=== PATIENT | male | born 1970 | race Caucasian/White ===

== ENCOUNTER → 2017-02-25 | Outpatient (CLI) | payer OTHER ==
[~2017-02-25] MED LIST: AUGMENTIN 875 M1 TAB PO; FLEXERIL10 MG PO; IBUPROFEN 30 M800 MG PO; MOTRIN800 MG PO; SINGULAIR10 MG PO; ULTRAM50 MG PO
== END | disposition home or self-care (01) ==
LOC: CT 02:08
DX: J32.9 Chronic sinusitis, unspecified (principal); R53.83 Other fatigue

== ENCOUNTER → 2019-01-25 | Day surgery (SDC) | payer OTHER ==
[~2019-01-25] VITALS: Ht 175.2 cm; Wt 117.9 kg
[~2019-01-25] MED LIST changes: +OMEPRAZOLE20 M2 PO
--- NOTE | ~2019-01-25 | POSTOPNOTE ---
[place], [place] POSTOPERATIVE PROGRESS NOTE NAME: NAWAF SALDANA UNIT #: [id number] ROOM: DOCTOR: NOEL MARTINEZ MD BIRTHDATE: [birth year] DATE: 01/25/19 GI NOTE PREOPERATIVE DIAGNOSIS: CHANGE IN BOWEL HABITS, BLOOD IN STOOL, EPIGASTRIC DISTRESS, NONSPECIFIC ABDOMINAL PAIN POSTOP UPPER GI PROC/FINDINGS: UPPER GI PROCEDURE/SURGERY: EGD WITH BIOPSY UPPER GI FINDINGS: GASTRITIS, DISTAL ESOPHAGEAL NODULE, POSTOP LOWER GI PROC/FINDINGS: LOWER GI PROCEDURE/SURGERY: COLONOSCOPY WITH SNARE POLYPECTOMY LOWER GI FINDINGS: DIVERTICULOSIS MODERATE TO SEVERE AT SIGMOID COLON, STATUS POST SESSILE POLYP SIGMOID COLON NOEL MARTINEZ MD CM:POSTOPN [id number] NOEL MARTINEZ MD 02/10/19 0857 SARA [email or web address]
--- NOTE | ~2019-01-25 | O ---
[place], [place] OPERATIVE NOTE NAME: NAWAF SALDANA UNIT #: [id number] ROOM: DOCTOR: JUAN EVANGELISTA,[facility] BIRTHDATE: [birth year] DOS: 01/25/2019 INDICATIONS: This is a 48-year-old patient who has presented with chief complaint of change in bowel habits, blood in stool, epigastric distress, and nonspecific abdominal pain. ALLERGIES: LATEX AND AMBIEN. FAMILY HISTORY: Noncontributory. PAST SURGICAL HISTORY: Minor wrist repair. PAST MEDICAL HISTORY: Abdominal cramp, 2+ edema. SOCIAL HISTORY: Nonsmoker, nonalcohol consumer, non-soda user. PROCEDURE: Today's procedure part of investigation is panendoscopy and colonoscopy. PREMEDICATION: Propofol. SCOPE: Olympus forward-viewing gastroscope Q10 video. REPORT: After putting the patient in left lateral position and application of lubricant to the scope, the scope was introduced. Thereafter, under direct visualization, advanced through the length of esophagus without difficulty. Distal esophageal nodule at the esophagogastric junction multiple times biopsied ruling out dysplastic cells. Gastric pouch was entered. Gastritis seen. Duodenal bulb, second and third part within normal limit. Antral biopsy obtained. The patient was gradually extubated and tolerated the procedure well. IMPRESSION: Gastritis, distal esophageal nodule, status post biopsy. PLAN AND DISCUSSION: Omeprazole 20 mg 1 every day will be started. Furthermore, we are going to proceed with colonoscopic examination for abdominal pain, change in bowel habit. NDICATIONS: This is a 48-year-old patient who has presented with chief complaint of abdominal pain, undergoing investigation. PROCEDURE: Today's procedure part of investigation is colonoscopy plus snare polypectomy. PREMEDICATION: Propofol. SCOPE: Olympus forward-viewing colonoscope 10L video. DESCRIPTION OF PROCEDURE: After putting the patient in left lateral position and application of lubricant to the scope, the scope was introduced. Thereafter, under direct visualization, advanced through the length of colon [place], [place] OPERATIVE NOTE NAME: NAWAF SALDANA UNIT #: [id number] ROOM: DOCTOR: JUAN EVANGELISTA,[facility] BIRTHDATE: [birth year] without difficulty. Sessile polypoid lesion in sigmoid colon with snare was polypectomized. Sample recovered. Oscelqpw-[id number] diverticulosis, sigmoid colon was noticed. Base of the cecum explored, appendiceal orifice identified and ileocecal valve was defined. Scope was gradually withdrawn from ascending, transverse, descending colon under circumferential fashion. Tissue, carefully examined. The patient extubated, tolerated the procedure well. IMPRESSION: Diverticulosis, [id number] at sigmoid colon, status post sessile polyp, sigmoid colon, status post snare polypectomy. PLAN: High fiber diet. ACTIVITY: Ad siria. FOLLOWUP: As outpatient. Thank you very much indeed for your kind referral. NOEL MARTINEZ MD CM:OPRECORD:OPERATIVE NOTE [id number] NOEL MARTINEZ MD 02/01/19 1039 interface
[2019-01-25 06:43] VITALS: BP 129/67
[2019-01-25 08:17] VITALS: BP 99/57
[2019-01-25 08:32] VITALS: BP 103/66
[2019-01-25 08:48] VITALS: BP 107/62
== END | disposition home or self-care (01) ==
LOC: SDC 01-12 11:00
DX: K63.5 Polyp of colon (principal); K29.50 Unspecified chronic gastritis without bleeding; K57.30 Diverticulosis of large intestine without perforation or abscess without bleeding; E66.9 Obesity, unspecified; Z68.38 Body mass index [BMI] 38.0-38.9, adult; Z98.890 Other specified postprocedural states; Z79.899 Other long term (current) drug therapy

== ENCOUNTER → 2019-02-09 | Outpatient (CLI) | payer OTHER | END | disposition home or self-care (01) | LOC: RESCLI 13:24 | DX: J30.2 Other seasonal allergic rhinitis (principal); Z71.89 Other specified counseling ==

== ENCOUNTER → 2020-04-03 | Outpatient (CLI) | payer OTHER | END | disposition home or self-care (01) | LOC: RESCLI 02:48 | PROVIDERS: ATTEND Internal Medicine Nephrology | DX: J30.2 Other seasonal allergic rhinitis (principal); K21.9 Gastro-esophageal reflux disease without esophagitis; Z79.899 Other long term (current) drug therapy; Z98.890 Other specified postprocedural states; Z88.8 Allergy status to other drugs, medicaments and biological substances ==

== ENCOUNTER → 2020-04-27 | Outpatient (CLI) | payer OTHER ==
[2020-04-27 13:22] LABS: BASO % 0.6 % (0.0-1.0); EOS # 0.1 10*3/uL (0.0-0.4); EOS % 2.4 % (1.0-4.0); HEMATOCRIT 44.6 % (42.0-52.0); LYMPH # 2.3 10*3/uL (1.3-4.4); LYMPH % 45.9 % (27.0-41.0); MEAN CELL VOLUME 91.6 fl (80.0-94.0); MEAN CORPUSCULAR HGB 30.6 pg (27.0-31.0); MEAN CORPUSCULAR HGB CONC 33.4 g/dl (33.0-37.0); MONO # 0.5 10*3/uL (0.1-1.0); MONO % 10.2 % (3.0-9.0); NEUT % 40.5 % (47.0-73.0); PLATELET COUNT AUTOMATED 288 10*3/uL (130-400); RED BLOOD COUNT 4.87 10*6/uL (4.50-5.90)
[2020-04-27 13:55] LABS: ALBUMIN 3.7 gm/dl (3.1-4.5); ALKALINE PHOSPHATASE 63 U/L (45-117); BUN 13 mg/dl (7-24); CHLORIDE 108 mmol/L (98-107); CHOLESTEROL 219 mg/dL (<200); HDL CHOLESTEROL 46 mg/dl (40-60); LDL CHOLESTEROL 136 mg/dL (9-159); POTASSIUM 4.2 mmol/L (3.5-5.1); SGOT/AST 35 IU/L (3-35); SGPT/ALT 62 U/L (12-78); SODIUM 141 mmol/L (136-145); TOTAL PROTEIN 7.1 gm/dL (6.4-8.2); TRIGLYCERIDES 184 mg/dl (<150); VLDL CHOLESTEROL 37 mg/dL (6-40)
== END | disposition home or self-care (01) ==
LOC: LAB 12:59
PROVIDERS: ATTEND Social Worker Clinical
DX: Z79.899 Other long term (current) drug therapy (principal)

== ENCOUNTER → 2020-08-28 | Outpatient (CLI) | payer OTHER | END | disposition home or self-care (01) | LOC: RESCLI 01:44 | PROVIDERS: ATTEND Internal Medicine | DX: M47.816 Spondylosis without myelopathy or radiculopathy, lumbar region (principal); M43.16 Spondylolisthesis, lumbar region; M48.061 Spinal stenosis, lumbar region without neurogenic claudication; M54.31 Sciatica, right side; K21.9 Gastro-esophageal reflux disease without esophagitis; J30.2 Other seasonal allergic rhinitis; M25.78 Osteophyte, vertebrae; Z79.899 Other long term (current) drug therapy; Z98.890 Other specified postprocedural states; Z91.040 Latex allergy status; Z88.8 Allergy status to other drugs, medicaments and biological substances ==

== ENCOUNTER → 2020-08-30 | Outpatient (CLI) | payer OTHER | END | disposition home or self-care (01) | LOC: RAD 20:48 | PROVIDERS: ATTEND Family Medicine | DX: M25.511 Pain in right shoulder (principal) ==

== ENCOUNTER → 2020-10-17 | Outpatient (CLI) | payer OTHER | END | disposition home or self-care (01) | LOC: RAD 22:36 | PROVIDERS: ATTEND Internal Medicine | DX: M18.12 Unilateral primary osteoarthritis of first carpometacarpal joint, left hand (principal) ==

== ENCOUNTER → 2020-10-28 | Outpatient (CLI) | payer OTHER | END | disposition home or self-care (01) | LOC: RESCLI 00:49 | PROVIDERS: ATTEND Internal Medicine Nephrology | DX: J30.2 Other seasonal allergic rhinitis (principal); K21.9 Gastro-esophageal reflux disease without esophagitis; E66.01 Morbid (severe) obesity due to excess calories; Z79.899 Other long term (current) drug therapy; Z88.8 Allergy status to other drugs, medicaments and biological substances ==

== ENCOUNTER → 2022-02-11 | Outpatient (CLI) | payer OTHER | END | disposition home or self-care (01) | LOC: RESCLI 04:38 | PROVIDERS: ATTEND Student in an Organized Health Care Education/Training Program | DX: J30.2 Other seasonal allergic rhinitis (principal); K21.9 Gastro-esophageal reflux disease without esophagitis; Z79.899 Other long term (current) drug therapy; Z88.8 Allergy status to other drugs, medicaments and biological substances ==

== ENCOUNTER → 2022-02-27 | Outpatient (CLI) | payer OTHER | END | disposition home or self-care (01) | LOC: RESCLI 15:02 | PROVIDERS: ATTEND Student in an Organized Health Care Education/Training Program | DX: S03.00XA Dislocation of jaw, unspecified side, initial encounter (principal); J30.2 Other seasonal allergic rhinitis; K21.9 Gastro-esophageal reflux disease without esophagitis; X58.XXXA Exposure to other specified factors, initial encounter; Y93.89 Activity, other specified; Y92.89 Other specified places as the place of occurrence of the external cause; Y99.8 Other external cause status; Z88.8 Allergy status to other drugs, medicaments and biological substances; Z79.899 Other long term (current) drug therapy; Z98.890 Other specified postprocedural states ==

== ENCOUNTER → 2022-12-16 | Outpatient (CLI) | payer OTHER ==
[2022-12-16 13:02] LABS: BUN 11 mg/dl (9-23); CHLORIDE 104 mmol/L (98-107)
== END | disposition home or self-care (01) ==
LOC: RESCLI 10:48
PROVIDERS: ATTEND Internal Medicine
DX: R25.2 Cramp and spasm (principal); I82.402 Acute embolism and thrombosis of unspecified deep veins of left lower extremity; K21.9 Gastro-esophageal reflux disease without esophagitis; J30.2 Other seasonal allergic rhinitis; Z82.3 Family history of stroke; Z82.49 Family history of ischemic heart disease and other diseases of the circulatory system; Z98.890 Other specified postprocedural states; Z91.040 Latex allergy status; Z88.8 Allergy status to other drugs, medicaments and biological substances; Z79.899 Other long term (current) drug therapy

== ENCOUNTER → 2022-12-21 | Outpatient (CLI) | payer OTHER | END | disposition home or self-care (01) | LOC: RAD 12:50 | PROVIDERS: ATTEND Internal Medicine | DX: M17.12 Unilateral primary osteoarthritis, left knee (principal); M25.462 Effusion, left knee ==

== ENCOUNTER 2023-01-23 18:04 | Emergency (ER) | payer OTHER ==
[~2023-01-23] VITALS: Ht 175.2 cm; Wt 115.7 kg
[2023-01-23] MEDS ORDERED: AMOX-CLAV 875-1 EACH PO (18:10)
== END 2023-01-23 18:50 | disposition home or self-care (01) ==
LOC: ED 18:04
DX: S61.257A Open bite of left little finger without damage to nail, initial encounter (principal); M19.90 Unspecified osteoarthritis, unspecified site; Z98.890 Other specified postprocedural states; Z88.8 Allergy status to other drugs, medicaments and biological substances; W55.01XA Bitten by cat, initial encounter; Y93.89 Activity, other specified; Y92.89 Other specified places as the place of occurrence of the external cause; Y99.8 Other external cause status

== ENCOUNTER → 2023-05-05 | Outpatient (CLI) | payer OTHER ==
[~2023-05-05] MED LIST changes: +AMOX-CLAV 875-1 EACH PO
== END | disposition home or self-care (01) ==
LOC: RAD 13:32
PROVIDERS: ATTEND Internal Medicine
DX: M47.817 Spondylosis without myelopathy or radiculopathy, lumbosacral region (principal); M47.814 Spondylosis without myelopathy or radiculopathy, thoracic region

== ENCOUNTER → 2023-08-19 | Day surgery (SDC) | payer OTHER ==
[2023-08-12 14:40] LABS: BUN 9 mg/dl (9-23); CHLORIDE 105 mmol/L (98-107); POTASSIUM 3.9 mmol/L (3.4-5.1)
[~2023-08-19] VITALS: Ht 175.2 cm; Wt 122.5 kg
[~2023-08-19] MED LIST changes: +BUPIVACAINE 0.5% 10 ML VIAL ONE; +CEFAZOLIN SODIUM IV SCH; +INFUSION IV SCH; +Lactated Ringer's Solution 1,000 ML IV ONE; +Lactated Ringer's Solution 1,000 ML IV SCH; +Lidocaine Hydrochloride 5 ML AMP ONE; +Midazolam Hydrochloride 2 MG/2 ML VIAL IV STA; +PROPOFOL 200 MG/20 ML VIAL IV ONE; +SODIUM CHLOR IV SCH; +ceFAZolin sodium/sodium chlor 20 ML IV ONE
[2023-08-19 06:52] VITALS: BP 126/81
[2023-08-19 08:07] VITALS: BP 121/70
[2023-08-19 08:22] VITALS: BP 137/66
[2023-08-19 08:35] VITALS: BP 118/79
== END | disposition home or self-care (01) ==
LOC: SDC 08-16 08:00
PROVIDERS: ATTEND Orthopaedic Surgery
DX: G56.03 Carpal tunnel syndrome, bilateral upper limbs (principal); K21.9 Gastro-esophageal reflux disease without esophagitis; J45.909 Unspecified asthma, uncomplicated; Z79.899 Other long term (current) drug therapy

== ENCOUNTER → 2024-02-28 | Outpatient (CLI) | payer OTHER ==
[~2024-02-28] MED LIST changes: -BUPIVACAINE 0.5% 10 ML VIAL ONE; -CEFAZOLIN SODIUM IV SCH; -INFUSION IV SCH; -Lactated Ringer's Solution 1,000 ML IV ONE; -Lactated Ringer's Solution 1,000 ML IV SCH; -Lidocaine Hydrochloride 5 ML AMP ONE; -Midazolam Hydrochloride 2 MG/2 ML VIAL IV STA; -PROPOFOL 200 MG/20 ML VIAL IV ONE; -SODIUM CHLOR IV SCH; -ceFAZolin sodium/sodium chlor 20 ML IV ONE
== END | disposition home or self-care (01) ==
LOC: RESCLI 03:00
PROVIDERS: ATTEND Internal Medicine
DX: J30.2 Other seasonal allergic rhinitis (principal); J40 Bronchitis, not specified as acute or chronic; K21.9 Gastro-esophageal reflux disease without esophagitis; Z86.16 Personal history of COVID-19; Z98.890 Other specified postprocedural states; Z88.8 Allergy status to other drugs, medicaments and biological substances; Z91.040 Latex allergy status; Z79.899 Other long term (current) drug therapy

== ENCOUNTER 2024-04-03 18:24 | Emergency (ER) | payer OTHER ==
[~2024-04-03] VITALS: Ht 175.2 cm; Wt 120.2 kg
[~2024-04-03 18:24] MED LIST changes: -XARE15TA PO
[2024-04-03] MEDS ORDERED: XARE15TA PO (19:53)
[2024-04-03] MEDS ORDERED: Enoxaparin Sodium 100 MG/ML SYR SC ONE (19:55)
== END 2024-04-03 20:20 | disposition home or self-care (01) ==
LOC: ED 18:24
DX: I82.402 Acute embolism and thrombosis of unspecified deep veins of left lower extremity (principal); M19.90 Unspecified osteoarthritis, unspecified site; K21.9 Gastro-esophageal reflux disease without esophagitis; Z91.040 Latex allergy status; Z98.890 Other specified postprocedural states; Z90.49 Acquired absence of other specified parts of digestive tract

== ENCOUNTER → 2024-04-03 | Outpatient (CLI) | payer OTHER ==
[~2024-04-03] MED LIST changes: +XARE15TA PO
[2024-04-03 16:43] LABS: BASO # 0.1 10*3/uL (0.0-0.1); BASO % 0.8 % (0.0-1.0); EOS # 0.2 10*3/uL (0.0-0.4); EOS % 3.3 % (1.0-4.0); HEMATOCRIT 46.4 % (42.0-52.0); LYMPH # 3.1 10*3/uL (1.3-4.4); LYMPH % 47.4 % (27.0-41.0); MEAN CELL VOLUME 91.2 fl (80.0-94.0); MEAN CORPUSCULAR HGB CONC 34.1 g/dl (33.0-37.0); MEAN PLATELET VOLUME 8.7 fl (9.6-12.3); MONO # 0.6 10*3/uL (0.1-1.0); NEUT # 2.5 10*3/uL (2.3-7.9); NEUT % 39.3 % (47.0-73.0); PLATELET COUNT AUTOMATED 292 10*3/uL (130-400); RED BLOOD COUNT 5.09 10*6/uL (4.50-5.90); RED CELL DISTRI WIDTH 11.9 % (0-14.5); WHITE BLOOD COUNT 6.4 10*3/uL (4.8-10.8)
[2024-04-03 17:00] LABS: BUN 13 mg/dl (9-23); CHLORIDE 101 mmol/L (98-107); POTASSIUM 3.9 mmol/L (3.4-5.1)
== END | disposition home or self-care (01) ==
LOC: LAB 16:17
PROVIDERS: ATTEND Internal Medicine
DX: I82.402 Acute embolism and thrombosis of unspecified deep veins of left lower extremity (principal); R20.2 Paresthesia of skin; R60.0 Localized edema; R25.2 Cramp and spasm

== ENCOUNTER → 2024-04-03 | Outpatient (CLI) | payer OTHER | END | disposition home or self-care (01) | LOC: RESCLI 02:36 | PROVIDERS: ATTEND Internal Medicine | DX: J30.9 Allergic rhinitis, unspecified (principal); J30.2 Other seasonal allergic rhinitis; K21.9 Gastro-esophageal reflux disease without esophagitis; R20.2 Paresthesia of skin; R60.0 Localized edema; R25.2 Cramp and spasm; J40 Bronchitis, not specified as acute or chronic; Z98.890 Other specified postprocedural states; Z79.899 Other long term (current) drug therapy; Z88.8 Allergy status to other drugs, medicaments and biological substances ==

== ENCOUNTER → 2024-04-17 | Outpatient (CLI) | payer OTHER ==
[~2024-04-17] MED LIST changes: +XARE15TA PO
== END | disposition home or self-care (01) ==
LOC: RESCLI 01:05
PROVIDERS: ATTEND Internal Medicine
DX: I82.409 Acute embolism and thrombosis of unspecified deep veins of unspecified lower extremity (principal); G56.02 Carpal tunnel syndrome, left upper limb; K21.9 Gastro-esophageal reflux disease without esophagitis; J30.2 Other seasonal allergic rhinitis; Z79.899 Other long term (current) drug therapy; Z98.890 Other specified postprocedural states; Z88.8 Allergy status to other drugs, medicaments and biological substances

== ENCOUNTER → 2024-05-17 | Outpatient (CLI) | payer OTHER | END | disposition home or self-care (01) | LOC: RESCLI 14:00 | PROVIDERS: ATTEND Internal Medicine Infectious Disease | DX: I48.91 Unspecified atrial fibrillation (principal); J30.2 Other seasonal allergic rhinitis; K21.9 Gastro-esophageal reflux disease without esophagitis; Z91.040 Latex allergy status; Z88.8 Allergy status to other drugs, medicaments and biological substances; Z98.890 Other specified postprocedural states; Z79.01 Long term (current) use of anticoagulants; Z79.899 Other long term (current) drug therapy ==

== ENCOUNTER → 2024-06-13 | Outpatient (CLI) | payer OTHER | END | disposition home or self-care (01) | LOC: RESCLI 11:27 | PROVIDERS: ATTEND Internal Medicine | DX: K21.9 Gastro-esophageal reflux disease without esophagitis (principal); I48.91 Unspecified atrial fibrillation; J30.2 Other seasonal allergic rhinitis; Z79.899 Other long term (current) drug therapy; Z98.890 Other specified postprocedural states; Z88.8 Allergy status to other drugs, medicaments and biological substances ==

== ENCOUNTER → 2024-07-28 | Outpatient (CLI) | payer OTHER | END | disposition home or self-care (01) | LOC: RESCLI 14:56 | PROVIDERS: ATTEND Internal Medicine | DX: J30.2 Other seasonal allergic rhinitis (principal); I82.409 Acute embolism and thrombosis of unspecified deep veins of unspecified lower extremity; Z79.899 Other long term (current) drug therapy; Z88.8 Allergy status to other drugs, medicaments and biological substances; Z98.890 Other specified postprocedural states ==

== ENCOUNTER 2024-09-23 12:49 | Emergency (ER) | payer OTHER ==
[~2024-09-23] VITALS: Ht 170.1 cm; Wt 121.8 kg
[2024-09-23] MEDS ORDERED: Oxymetazoline Hydrochloride Nasal 15 ml bottle NAS ONE (13:30)
[2024-09-23 13:45] LABS: BASO # 0.1 10*3/uL (0.0-0.1); BASO % 0.8 % (0.0-1.0); EOS # 0.1 10*3/uL (0.0-0.4); EOS % 1.8 % (1.0-4.0); HEMATOCRIT 48.4 % (42.0-52.0); MEAN CELL VOLUME 90.1 fl (80.0-94.0); MEAN CORPUSCULAR HGB CONC 33.3 g/dl (33.0-37.0); MEAN PLATELET VOLUME 8.4 fl (9.6-12.3); MONO # 0.5 10*3/uL (0.1-1.0); MONO % 8.5 % (3.0-9.0); NEUT # 2.9 10*3/uL (2.3-7.9); NEUT % 46.1 % (47.0-73.0); PLATELET COUNT AUTOMATED 259 10*3/uL (130-400); RED BLOOD COUNT 5.37 10*6/uL (4.50-5.90); WHITE BLOOD COUNT 6.2 10*3/uL (4.8-10.8)
== END 2024-09-23 14:22 | disposition home or self-care (01) ==
LOC: ED 12:49
PROVIDERS: Emergency Medicine
DX: R04.0 Epistaxis (principal); I10 Essential (primary) hypertension; E78.5 Hyperlipidemia, unspecified; Z86.718 Personal history of other venous thrombosis and embolism; Z86.711 Personal history of pulmonary embolism; Z91.040 Latex allergy status; Z88.5 Allergy status to narcotic agent; Z79.899 Other long term (current) drug therapy

== ENCOUNTER 2024-10-11 23:32 | Emergency (ER) | payer OTHER ==
[~2024-10-11] VITALS: Ht 170.1 cm; Wt 120.2 kg
[2024-10-12] MEDS ORDERED: methylPREDNISolone sod succ 125 MG VIAL IM ONE (00:35)
== END 2024-10-12 00:44 | disposition home or self-care (01) ==
LOC: ED 23:32
DX: M25.561 Pain in right knee (principal); K21.9 Gastro-esophageal reflux disease without esophagitis; Z79.899 Other long term (current) drug therapy; Z88.5 Allergy status to narcotic agent; Z91.040 Latex allergy status; Z98.890 Other specified postprocedural states; W22.8XXA Striking against or struck by other objects, initial encounter; Y93.89 Activity, other specified; Y92.89 Other specified places as the place of occurrence of the external cause; Y99.8 Other external cause status

== ENCOUNTER → 2025-01-09 | Outpatient (CLI) | payer OTHER | END | disposition home or self-care (01) | LOC: RESCLI 08:40 | PROVIDERS: ATTEND Student in an Organized Health Care Education/Training Program | DX: J30.2 Other seasonal allergic rhinitis (principal); K21.9 Gastro-esophageal reflux disease without esophagitis; I82.409 Acute embolism and thrombosis of unspecified deep veins of unspecified lower extremity ==

== ENCOUNTER → 2025-05-01 | Outpatient (CLI) | payer OTHER | END | disposition home or self-care (01) | LOC: ORTHO 12:39 | PROVIDERS: ATTEND Orthopaedic Surgery | DX: M25.521 Pain in right elbow (principal) ==